=== PATIENT | female | born 1990 | race Caucasian/White ===

== ENCOUNTER → 2016-03-04 | Outpatient (CLI) | payer OTHER ==
[~2016-03-04] MED LIST: FERR1TAB13 PO; INSHNI SQ; PREN1TAB29 PO
[2016-03-06 07:11] LABS: AFP MULTIPLE OF MEDIAN 1.08; AFPTS INSULIN DEP DIABETIC? YES; AFPTS MATERNAL WT 140 LBS; ALPHA-FETOPROTEIN RACE CAUCASIAN=W; EDD DETERMINED BY ULTRASOUND; HISTORY OF NTD NO; REPEAT SAMPLE? NO
== END | disposition home or self-care (01) ==
LOC: C.LAB1850 11:39
PROVIDERS: ATTEND Obstetrics & Gynecology
DX: Z34.82 Encounter for supervision of other normal pregnancy, second trimester (principal)

== ENCOUNTER → 2016-05-27 | Outpatient (CLI) | payer OTHER ==
[2016-05-27 13:11] LABS: HEMATOCRIT 28.2 % (37-47)
== END | disposition home or self-care (01) ==
LOC: C.LAB1850 11:46
PROVIDERS: ATTEND Obstetrics & Gynecology
DX: Z34.82 Encounter for supervision of other normal pregnancy, second trimester (principal)

== ENCOUNTER → 2016-05-27 | Outpatient (CLI) | payer OTHER ==
[2016-05-27 15:13] LABS: URINE APPEARANCE CLEAR (CLEAR); URINE BILIRUBIN NEG (NEG); URINE COLOR YELLOW; URINE NITRITE NEG (NEG); URINE PH 8.5 (4.5-7.5); URINE SPECIFIC GRAVITY 1.005 (1.000-1.030); UROBILINOGEN NEG (NEG)
[2016-05-27 15:18] LABS: MANUAL MICROSCOPIC REQUIRED? NO; REVIEW REQ? NO
== END | disposition home or self-care (01) ==
LOC: C.LABSPEC 13:54
PROVIDERS: ATTEND Obstetrics & Gynecology
DX: Z34.82 Encounter for supervision of other normal pregnancy, second trimester (principal)

== ENCOUNTER → 2016-07-21 | Outpatient (CLI) | payer OTHER ==
[2016-07-21 15:14] LABS: HEMATOCRIT 25.7 % (37-47); MEAN CELL VOLUME 73.2 fL (80-100); MEAN CORPUSCULAR HEMOGLOBIN 21.9 pg (25-34); MEAN PLATELET VOLUME 9.8 fL (7.4-10.4); PLATELET COUNT 219 K/uL (130-400); RED BLOOD COUNT 3.51 M/uL (4.2-5.4); WHITE BLOOD COUNT 9.14 K/uL (4.8-10.8)
[2016-07-21 15:20] LABS: ALT/SGPT 12 U/L (12-78); AST/SGOT 16 U/L (15-37); BLOOD UREA NITROGEN 5 mg/dl (7-18); BUN/CREATININE RATIO 9.5 (10-20); CALCIUM 8.2 mg/dl (8.5-10.1); CARBON DIOXIDE 24 mmol/L (21-32); CHLORIDE 111 mmol/L (98-107); CREATININE 0.53 mg/dl (0.60-1.20); GLUCOSE 95 mg/dl (70-99); POTASSIUM 3.3 mmol/L (3.5-5.1); SODIUM 144 mmol/L (136-145); URIC ACID 4.3 mg/dl (2.6-7.2)
[2016-07-21 15:28] LABS: ALB/GLOB RATIO 0.7 (0.9-2); ALKALINE PHOSPHATASE 123 U/L (45-117)
[2016-07-21 16:14] LABS: BASO % 0.1 %; BASO ABS # 0.01 K/uL (0-0.2); COMPLETE YES; EOS % 0.4 %; IG% 1.1 %; LYMPH % 19.5 %; LYMPH ABS # 1.78 K/uL (1.2-3.4); MICROCYTOSIS PRESENT; MONO % 3.9 %; POLYCHROMASIA 1+
== END | disposition home or self-care (01) ==
LOC: C.LAB1850 14:28
PROVIDERS: ATTEND Obstetrics & Gynecology
DX: O13.9 Gestational [pregnancy-induced] hypertension without significant proteinuria, unspecified trimester (principal)

== ENCOUNTER → 2016-07-23 | Outpatient (CLI) | payer OTHER ==
[2016-07-23 11:37] LABS: URINE TOTAL PROTEIN 28.6 mg/dl (0-11.9); URINE TOTAL PROTEIN CALC 357.5 mg/24 hr (0-149.1)
[2016-07-28 02:20] LABS: CHENODEOXYCHOLIC ACID 3.1 umol/L (< OR = 3.1); CHOLIC ACID 2.3 umol/L (< OR = 1.8); DEOXYCHOLIC ACID 2.5 umol/L (< OR = 2.4); HEMOGLOBIN A2 2.1 % (1.8-3.5); HGB 7.7 g/dL (11.7-15.5); MCH 22.5 pg (27.0-33.0); RBC 3.42 Mill/uL (3.80-5.10); RDW 16.5 % (11.0-15.0); TOTAL BILE ACIDS 7.9 umol/L (< OR = 6.8)
== END | disposition home or self-care (01) ==
LOC: C.LAB1850 10:27
PROVIDERS: ATTEND Obstetrics & Gynecology
DX: L29.9 Pruritus, unspecified (principal); O13.9 Gestational [pregnancy-induced] hypertension without significant proteinuria, unspecified trimester; O99.019 Anemia complicating pregnancy, unspecified trimester; O99.719 Diseases of the skin and subcutaneous tissue complicating pregnancy, unspecified trimester; Z3A.00 Weeks of gestation of pregnancy not specified

== ENCOUNTER 2016-07-26 17:00 | Emergency (ER) | payer OTHER ==
[~2016-07-26] VITALS: Ht 162.6 cm; Wt 82.2 kg
[~2016-07-26 17:00] MED LIST changes: -FERR1TAB13 PO; -INSHNI SQ
[2016-07-26 17:01] VITALS: TEMP 36.7; Ht 162.6 cm; Wt 82.2 kg
[2016-07-26] MEDS ORDERED: INSHNI SQ (17:53)
[2016-07-26] MEDS ORDERED: FERR1TAB13 PO (17:53)
--- NOTE | 2016-07-26 18:50 | DIAGNOSTIC IMAGING REPORT ---
RIGHT LOWER EXTREMITY VENOUS DOPPLER HISTORY: right leg swelling Right COMPARISON STUDY: None. FINDINGS: There is normal compressibility, flow, and augmentation within the right lower extremity deep venous system. IMPRESSION: No DVT within the right lower extremity Electronically signed by: Markus Lopez M.D. 07/26/2016 6:48 PM Dictated Date/Time: 07/26/2016 6:48 PM
[2016-07-26 19:00] VITALS: BP 128/71; PULSE 68; O2SAT 99
--- NOTE | 2016-07-26 19:22 | EMERGENCY ROOM VISIT NOTE ---
History First contact with patient: 17:06 Chief Complaint: SWELLING TO EXTREMITY Stated Complaint: RT LEG SWELLING,37 WKS PREG History of Present Illness The patient is a 26 year old female who presents to the Emergency Room with complaints of right leg swelling. The patient states that she is currently almost 37 weeks . She has had swelling of both of her legs for the past 1.5 weeks, but states that the right leg is more swollen than the left day. The patient is seen by Ann Hooper [facility] CH[facility]. She was diagnosed with preeclampsia this week after having an elevated blood pressure and protein in her 24-hour urine. She is also currently taking insulin at bedtime for gestational diabetes. She states that she has maintained her blood sugars around 125 to 130, which is just slightly higher than they should be. She is being induced this week due to the preeclampsia. She states this is her third . She has no history of blood clots. She is not a smoker and denies any recent long trips. She denies any leg pain, numbness or weakness. She denies any abdominal pain or vaginal bleeding. Review of Systems A complete 10 point review of systems was reviewed with the patient with pertinent positives and negatives as per history of present illness. All else were negative. Social History Smoking Status: Former Smoker Current/Historical Medications Scheduled Ferrous Sulfate ( Ferrous Sulfate), 325 MG PO DAILY Insulin Human NPH (Humulin N), 8 UNITS SQ HS Vit W/ Ferrous Fumara (), 1 TABLET PO DAILY Allergies Coded Allergies: Sulfamethoxazole w/Trimethoprim (Verified Allergy, Unknown, UNKNOWN, ) Physical Exam Vital Signs Date Time Temp Pulse Resp B/P Pulse Ox O2 Delivery O2 Flow Rate FiO2 07/26/16 19:00 68 18 128/71 99 Room Air 07/26/16 17:01 36.7 82 18 133/77 100 Room Air Physical Exam VITALS: Vitals are noted on the nurse's note and reviewed by myself. Vital signs stable. GENERAL: This is a 26-year-old female, in no acute distress, nondiaphoretic, well-developed well-nourished. HEART: Regular rate and rhythm without murmurs gallops or rubs. LUNGS: Clear to auscultation bilaterally without wheezes, rales or rhonchi. No retractions or accessory muscle use. ABDOMEN: Gravid uterus. EXTREMITIES: There is 1+ pitting edema to the right lower extremity. No erythema or tenderness with palpation. There is mild edema of the left thorax and 8. NEURO: Patient was alert and oriented to person place and time. Medical Decision & Procedures ER Provider Diagnostic Interpretation: RIGHT LOWER EXTREMITY VENOUS DOPPLER HISTORY: right leg swelling Right COMPARISON STUDY: None. FINDINGS: There is normal compressibility, flow, and augmentation within the right lower extremity deep venous system. IMPRESSION: No DVT within the right lower extremity Medical Decision The patient was evaluated as above. Ultrasound of the leg was performed and read by radiology with no DVT noted. I did not feel that any further workup was necessary at this time. Blood pressure was minimally elevated initially, but repeat blood pressure was within normal limits. Case was discussed with Dr. Urbano of [facility]. She did confirm that the patient will be induced this week, but also did not feel that any further workup needed to be done in the emergency department today given the negative ultrasound. Patient was informed of these findings and was reassured. She will follow-up with OB/ [facility] as scheduled. She verbalized understanding of my assessment and treatment plan and was discharged home in good condition. Impression Primary Impression: Right leg swelling Departure Information Dispostion Home / Self-Care Condition GOOD Referrals Skyler Leon. PH.D. (PCP) Sagrario Urbano M.D. Patient Instructions My [facility] Additional Instructions Follow-up with Dr. Urbano as scheduled. Elevate the leg to reduce swelling. Return to the emergency department with worsening or new/concerning symptoms.
== END 2016-07-26 19:49 | disposition home or self-care (01) ==
LOC: C.EDB 17:01
DX: O26.893 Other specified pregnancy related conditions, third trimester (principal); M79.89 Other specified soft tissue disorders; O24.414 Gestational diabetes mellitus in pregnancy, insulin controlled; O14.93 Unspecified pre-eclampsia, third trimester; Z3A.37 37 weeks gestation of pregnancy; Z87.891 Personal history of nicotine dependence

== ENCOUNTER → 2016-07-28 | Outpatient (CLI) | payer OTHER ==
[~2016-07-28] MED LIST changes: +FERR1TAB13 PO; +INSHNI SQ
[2016-07-28 11:27] LABS: HEMATOCRIT 26.3 % (37-47); MEAN CELL VOLUME 73.7 fL (80-100); MEAN CORPUSCULAR HEMOGLOBIN 21.6 pg (25-34); MEAN PLATELET VOLUME 9.6 fL (7.4-10.4); PLATELET COUNT 178 K/uL (130-400); RED BLOOD COUNT 3.57 M/uL (4.2-5.4)
[2016-07-28 11:28] LABS: MEAN CORPUSCULAR HGB CONC 29.3 g/dl (32-36)
[2016-07-28 12:09] LABS: ALB/GLOB RATIO 0.7 (0.9-2); ALKALINE PHOSPHATASE 130 U/L (45-117); ALT/SGPT 11 U/L (12-78); AST/SGOT 14 U/L (15-37); BLOOD UREA NITROGEN 4 mg/dl (7-18); BUN/CREATININE RATIO 7.5 (10-20); CALCIUM 8.2 mg/dl (8.5-10.1); CARBON DIOXIDE 26 mmol/L (21-32); CHLORIDE 113 mmol/L (98-107); CREATININE 0.54 mg/dl (0.60-1.20); GLUCOSE 78 mg/dl (70-99); POTASSIUM 3.4 mmol/L (3.5-5.1); SODIUM 144 mmol/L (136-145)
== END | disposition home or self-care (01) ==
LOC: C.LAB1850 10:58
PROVIDERS: ATTEND Obstetrics & Gynecology
DX: O14.90 Unspecified pre-eclampsia, unspecified trimester (principal)

== ENCOUNTER 2016-07-29 19:18 | Outpatient (CLI) | payer OTHER ==
[~2016-07-29] VITALS: Ht 162.6 cm; Wt 81.0 kg
[2016-07-29 19:56] VITALS: Ht 162.6 cm; Wt 81.0 kg
== END 2016-07-29 20:10 | disposition home or self-care (01) ==
LOC: C.LD 19:18 → C.OPB 19:18
PROVIDERS: ATTEND Obstetrics & Gynecology
DX: O16.3 Unspecified maternal hypertension, third trimester (principal); Z3A.37 37 weeks gestation of pregnancy

== ENCOUNTER 2016-07-30 07:24 | Inpatient (IN) | payer OTHER ==
[~2016-07-30] VITALS: Ht 162.6 cm; Wt 81.8 kg
[2016-07-30] MEDS ORDERED: LACTATED RINGER'S 1000ML 500 ML IV PRN ×2 (07:45→17:30)
[2016-07-30] MEDS ORDERED: OXYTOCIN 30 UNITS/500ML NSS IV PRN ×2 (07:45→20:30)
[2016-07-30] MEDS ORDERED: SODIUM CHLORIDE 0.9% 1000ML 1,000 ML IV SCH (07:53)
[2016-07-30] MEDS ORDERED: DEXTROSE 5% 1000ML 1,000 ML IV SCH (07:53)
[2016-07-30] MEDS ORDERED: DEXTROSE 50% 50 ML SYR IV PRN (08:00)
[2016-07-30] MEDS ORDERED: PENICILLIN G POTASSIUM IV 6 MU in DEXTROSE 5% 250ML 250 ML IV ONE (08:00)
[2016-07-30] MEDS: LACTATED RINGER'S 1000ML 1,000 ML IV SCH ×2 (08:03→16:21)
[2016-07-30] MEDS ORDERED: GLUCAGON FOR INJ 1 MG VIAL SQ PRN (08:30)
[2016-07-30] MEDS ORDERED: GLUCOSE 10 TABS/TUBE PO PRN (08:30)
[2016-07-30] MEDS ORDERED: GLUCOSE 40% GEL 15 GM TUBE PO PRN (08:30)
[2016-07-30 08:47] LABS: HEMATOCRIT 24.1 % (37-47); MEAN CELL VOLUME 74.4 fL (80-100); MEAN CORPUSCULAR HEMOGLOBIN 22.5 pg (25-34); MEAN CORPUSCULAR HGB CONC 30.3 g/dl (32-36); MEAN PLATELET VOLUME 10.5 fL (7.4-10.4); PLATELET COUNT 149 K/uL (130-400); RED BLOOD COUNT 3.24 M/uL (4.2-5.4)
[2016-07-30] MEDS: INSULIN REGULAR 250 UNITS in SODIUM CHLORIDE 0.9% 250ML 250 ML IV SCH ×3 (09:27→12:50)
[2016-07-30 11:23] VITALS: Ht 162.6 cm; Wt 81.8 kg
[2016-07-30] MEDS: PENICILLIN G POTASSIUM IV 3 MU in DEXTROSE 5% 100ML 100 ML IV PRN ×2 (12:37→16:21)
[2016-07-30] MEDS ORDERED: BUPIVACAINE 0.25% 30 ML VIAL ONE (16:52)
[2016-07-30] MEDS ORDERED: EpHEDrine SULFATE INJ 50 MG/ML AMP ONE (16:53)
[2016-07-30] MEDS ORDERED: FENTANYL 2MCG/ML ROPIV 1.25MG/ML 100ML BAG EPI ONE (16:53)
[2016-07-30] MEDS ORDERED: FENTANYL CITRATE INJ 50 MCG/1 ML 2 ML VIAL ONE (16:54)
[2016-07-30] MEDS ORDERED: NALBUPHINE HCL INJ 10 MG/ML AMP IV PRN (17:30)
[2016-07-30] MEDS ORDERED: EpHEDrine SULFATE INJ 50 MG/ML AMP IV PRN (17:30)
[2016-07-30] MEDS ORDERED: NALOXONE HCL INJ 0.4 MG/1 ML VIAL/CARP IV PRN (17:30)
[2016-07-30] MEDS ORDERED: ONDANSETRON INJ 2 MG/ML 2 ML VIAL IV PRN (17:30)
[2016-07-30] MEDS ORDERED: DiphenhydrAMINE HCL 50 MG/ML VIAL IV PRN (17:30)
[2016-07-30] MEDS ORDERED: FENTANYL 2MCG/ML ROPIV 1.25MG/ML 100ML BAG EPI PRN (17:30)
[2016-07-30] MEDS ORDERED: LANOLIN OINT EXT PRN ×2 (20:30)
[2016-07-30] MEDS ORDERED: BENZOCAINE 20% AER SPR 82.5 GM CAN EXT PRN (20:30)
[2016-07-30] MEDS ORDERED: ACETAMINOPHEN/CODEINE 300/30MG TAB PO PRN (20:30)
[2016-07-30] MEDS ORDERED: SUPERCREAM 0.870 % 15GM JAR EXT PRN (20:30)
[2016-07-30 21:10] LABS: HEMATOCRIT 20.5 % (37-47)
[2016-07-30] MEDS ORDERED: ACETAMINOPHEN 325 MG TAB PO STA (21:43)
--- NOTE | 2016-07-30 21:56 | DELIVERY SUMMARY ---
DATE OF OPERATION: 07/30/2016 The patient is a 26-year-old 3 para 2-0-0-2 white female EDC of 08/19/2016 who presented for induction of labor for preeclampsia and cholestasis of . She had a cervical Cho placed on the evening of July 29 and represented to labor and delivery on the morning of July 30. Pitocin augmentation of labor was begun, membranes were ruptured for clear fluid, she progressed to full dilation and pushed effectively over one contraction for delivery of a viable male infant. Mouth and nasopharynx were suctioned on the perineum. The infant was then placed on the mother's abdomen for further attention, stimulation and drawing. The cord was then clamped and cut. After cord blood was obtained, uterine massage was done to help to express the placenta. The placenta then eventually delivered spontaneously after approximately 10 minutes. Upon examination of the placenta, there appeared to be 1 cotyledon that appeared to be missing. The fundus was firm; however, there was still a steady trickle of bleeding. Curettage was performed with a Banjo curette and placental tissue was then removed. There was good uterine cry throughout after the curettage and bleeding had slowed. She was given dilute Pitocin during this procedure. A first degree perineal laceration was repaired with 3-0 chromic in usual fashion. The patient tolerated the procedure well, although she did have some hypotensive episode with dizziness and nausea prior to doing the curettage. Estimated blood loss was 400 mL. I attest to the content of the Intraoperative Record and any orders documented therein. Any exceptions are noted below. VAISHALID
[2016-07-30 22:47] VITALS: BP 125/72; PULSE 82; TEMP 36.8; O2SAT 100
[2016-07-30 22:50] VITALS: BP 125/72; PULSE 82; TEMP 36.8; O2SAT 100
[2016-07-30 23:05] VITALS: BP 123/71; PULSE 76; TEMP 37; O2SAT 98
[2016-07-30 23:20] VITALS: BP 124/68; PULSE 80; TEMP 36.8; O2SAT 98
[2016-07-30 23:50] VITALS: BP 122/62; PULSE 66; TEMP 37; O2SAT 98
[2016-07-31] VITALS (12 sets, daily range): BP systolic 111–145; BP diastolic 68–96; PULSE 66–80; TEMP 36.4–37.1; O2SAT 97–99
[2016-07-31] MEDS: IBUPROFEN 600 MG TAB PO PRN ×2 (01:44→10:45)
[2016-07-31 05:04] LABS: HEMATOCRIT 20.5 % (37-47)
[2016-07-31] MEDS: CEFAZOLIN IV 1,000 MG in DEXTROSE 5% 50ML 50 ML IV SCH ×3 (06:38→22:29)
--- NOTE | 2016-07-31 06:57 | Progress Note ---
Subjective Jul 31, 2016. Subjective conversation w/ patient, physical exam, lab review Ambulation: limited ambulation Voiding: no voiding problems Diet Tolerance: Regular Diet Lochia: Small Feeding Type: Breast Feeding Pain: controlled Comment: Patient is sitting up in bed and noting she is feeling much better. No longer has ringing in her ears or dizziness with sitting. Has been able to get up to the bathroom. no n/v, no cp or sob. Objective Vital Signs Date Time Temp Pulse Resp B/P (MAP) Pulse Ox O2 Delivery O2 Flow Rate FiO2 07/31/16 06:30 36.9 75 16 127/81 99 07/31/16 06:00 37.1 70 18 125/82 98 07/31/16 05:45 37.1 80 18 111/69 98 07/31/16 05:26 36.9 80 18 122/78 98 07/31/16 03:50 37.0 77 16 118/68 (85) 98 Room Air 07/31/16 00:15 Room Air 07/31/16 00:15 37.1 75 16 125/74 97 07/31/16 00:15 37.1 75 16 125/74 (91) 97 Room Air 07/31/16 00:15 37.1 75 16 125/74 97 07/30/16 23:50 37.0 66 18 122/62 98 07/30/16 23:20 36.8 80 18 124/68 98 07/30/16 23:05 37.0 76 18 123/71 98 07/30/16 22:50 36.8 82 18 125/72 100 07/30/16 22:47 36.8 82 18 125/72 100 Physical Exam General Appearance: WELL-APPEARING, WD/WN, NO APPARENT DISTRESS Abdomen: non tender, soft Fundus: Firm, Non-Tender, Relation to Umbilicus (at u) Extremities: non-tender, normal inspection, no pedal edema Laboratory Results Last 24 Hours Test 07/30/16 08:04 07/30/16 08:46 07/30/16 09:48 07/30/16 10:45 White Blood Count 7.20 K/uL Red Blood Count 3.24 M/uL Hemoglobin 7.3 g/dL Hematocrit 24.1 % Mean Corpuscular Volume 74.4 fL Mean Corpuscular Hemoglobin 22.5 pg Mean Corpuscular Hemoglobin Concent 30.3 g/dl RDW Standard Deviation 44.3 fL RDW Coefficient of Variation 16.3 % Platelet Count 149 K/uL Mean Platelet Volume 10.5 fL Nucleated RBC Absolute Count (auto) 0.04 K/uL Nucleated Red Blood Cells % 0.6 % Total Bilirubin 0.9 mg/dl Direct Bilirubin 0.2 mg/dl Aspartate Amino Transf (AST/SGOT) 18 U/L Alanine Aminotransferase (ALT/SGPT) 14 U/L Alkaline Phosphatase 124 U/L Total Protein 5.6 gm/dl Albumin 2.4 gm/dl Bedside Glucose 102 mg/dl 70 mg/dl 76 mg/dl Test 07/30/16 11:47 07/30/16 12:45 07/30/16 13:44 07/30/16 14:48 Bedside Glucose 108 mg/dl 99 mg/dl 86 mg/dl 88 mg/dl Test 07/30/16 15:47 07/30/16 16:46 07/30/16 17:46 07/30/16 18:49 Bedside Glucose 88 mg/dl 94 mg/dl 94 mg/dl 82 mg/dl Test 07/30/16 20:53 07/31/16 04:10 Hemoglobin 6.2 g/dL 6.3 g/dL Hematocrit 20.5 % 20.5 % Assessment and Plan Problem List Medical Problems: (1) Right leg swelling Status: Acute Post- Day#: 1 Continue Routine Care: After her first unit her hgb only came up 0.1, so second unit is transfusing. Doing much better. hgb due at 11. Will likely just monitor and see how she does after the two units since she is feeling so much better. Continue routine care.
[2016-07-31] MEDS: PRENATAL VITAMIN TAB PO SCH (08:17)
[2016-07-31] MEDS: FERROUS SULFATE 325 MG TAB PO SCH ×2 (08:17→18:23)
[2016-07-31] MEDS: DOCUSATE SODIUM 100 MG CAP PO SCH ×2 (08:17→20:26)
--- NOTE | 2016-07-31 08:49 | Anesthesia Procedure Note ---
Anesthesia Epidural Removal Nt Date & Time Jul 31, 2016 at 08:49 Vital Signs Pain Intensity: 1.0 Vital Signs Past 12 Hours Date Time Temp Pulse Resp B/P (MAP) Pulse Ox O2 Delivery O2 Flow Rate FiO2 07/31/16 07:00 36.9 72 18 132/81 98 07/31/16 06:30 36.9 75 16 127/81 99 07/31/16 06:00 37.1 70 18 125/82 98 07/31/16 05:45 37.1 80 18 111/69 98 07/31/16 05:26 36.9 80 18 122/78 98 07/31/16 03:50 37.0 77 16 118/68 (85) 98 Room Air 07/31/16 00:15 Room Air 07/31/16 00:15 37.1 75 16 125/74 97 07/31/16 00:15 37.1 75 16 125/74 (91) 97 Room Air 07/31/16 00:15 37.1 75 16 125/74 97 07/30/16 23:50 37.0 66 18 122/62 98 07/30/16 23:20 36.8 80 18 124/68 98 07/30/16 23:05 37.0 76 18 123/71 98 07/30/16 22:50 36.8 82 18 125/72 100 07/30/16 22:47 36.8 82 18 125/72 100 Notes Mental Status: alert / awake / arousable, participated in evaluation Nausea / Vomiting: adequately controlled Pain: adequately controlled Airway Patency, RR, SpO2: stable & adequate BP & HR: stable & adequate Hydration State: stable & adequate Neuraxial Anesthesia: was administered, sensory block is resolved Anesthetic Complications: no major complications apparent, pt satisfied with anesthetic care Epidural: removed without complications, with tip intact
[2016-07-31] MEDS: ACETAMINOPHEN/CODEINE 300/30MG TAB PO PRN (11:18)
[2016-07-31] MEDS ORDERED: BISACODYL 5 MG TABEC PO SCH (20:00)
[2016-08-01 00:05] VITALS: BP 126/78; PULSE 76; TEMP 36.5
[2016-08-01] MEDS: ACETAMINOPHEN 325 MG TAB PO PRN ×2 (00:15→17:14)
[2016-08-01 07:20] VITALS: BP 136/82; PULSE 61; TEMP 36.4
--- NOTE | 2016-08-01 07:38 | Progress Note ---
Subjective Aug 01, 2016. Subjective conversation w/ patient, physical exam Ambulation: ambulating normally Voiding: no voiding problems Passing Gas: Yes Diet Tolerance: Regular Diet Lochia: Small Feeding Type: Breast Feeding Review of Systems Constitutional: No fever, No chills, No sweats, No weight loss, No weakness, No fatigue, No problem reported Female : No see HPI, No dysuria, No urinary frequency, No hematuria, No incontinence, No abnormal vaginal bleeding, No vaginal discharge, No problem reported Objective Vital Signs Date Time Temp Pulse Resp B/P (MAP) Pulse Ox O2 Delivery O2 Flow Rate FiO2 08/01/16 00:05 36.5 76 18 126/78 (94) Room Air 08/01/16 00:05 Room Air 07/31/16 21:15 36.7 72 20 136/88 (104) Room Air 07/31/16 16:10 Room Air 07/31/16 16:10 36.5 72 16 122/78 (93) Room Air 07/31/16 11:55 36.4 67 20 145/96 (112) Room Air 07/31/16 08:25 36.6 66 20 128/83 99 07/31/16 08:00 37.0 73 20 131/82 (98) 98 Room Air 07/31/16 08:00 37.0 73 20 131/82 98 07/31/16 08:00 98 Room Air Physical Exam General Appearance: WELL-APPEARING, NO APPARENT DISTRESS Abdomen: non tender, soft Fundus: Firm, Non-Tender, Relation to Umbilicus (2 below U) Extremities: no calf tenderness Laboratory Results Last 24 Hours Test 07/31/16 11:27 Hemoglobin 7.1 g/dL Hematocrit 22.0 % Assessment and Plan Problem List Medical Problems: (1) Right leg swelling Status: Acute Post- Day#: 2 Continue Routine Care: stable course after blood transfusion of 2 units of PRBC's continue ferrous sulfate twice a day discharge to home follow up in 6 weeks.
[2016-08-01] MEDS: PRENATAL VITAMIN TAB PO SCH (07:50)
[2016-08-01] MEDS: DOCUSATE SODIUM 100 MG CAP PO SCH ×2 (07:50→18:34)
[2016-08-01] MEDS: FERROUS SULFATE 325 MG TAB PO SCH ×2 (07:50→17:13)
--- NOTE | 2016-08-01 08:14 | Discharge Instructions ---
Discharge Instructions Date of Service Aug 01, 2016. Admission Reason for Admission: Induction Discharge Discharge Diagnosis / Problem: recovery from normal delivery Discharge Goals Goal(s): Routine recovery after delivery Medications Continue Dispensed Medications: supercream, dermaplast, tucks, lansinoh Activity Recommendations Activity Limitations: per Instructions/Follow-up section . Instructions / Follow-Up Instructions / Follow-Up ACTIVITY RECOMMENDATIONS: * Gradual return to full activity over the next 2-3 weeks. * No lifting - nothing heavier than baby over the next 2-3 weeks. * Do not engage in vigorous exercise, sexual activity or sports until cleared by your physician. * Do not drive or operate any motorized equipment until cleared by your physician. * You may shower/bathe daily. MEDICATIONS: For discomfort or pain, you may use Acetaminophen (Tylenol), Ibuprofen (Advil), or Naproxen (Aleve) following the package directions. For constipation you may use Colace following the package directions. BREAST CARE: If you are not breast feeding: * Wear a supportive bra 24 hours a day for one to two weeks. * Avoid stimulating your breasts and nipples as much as possible during the first few weeks after delivery. * When taking a shower, have the warm water hit your back, not breasts. * When your breasts feel full, apply ice packs. Usually three to four times a day helps ease the discomfort. * Take a mild pain medication (Tylenol / Motrin) when you are uncomfortable. If breast feeding: * Use breast milk to lubricate nipples. Lansinoh cream may be used for sore nipples. You do not need to remove cream prior to breast feeding. If using a different brand of cream, check the label for directions regarding removal of cream prior to nursing. * Wear a supportive bra. * If having problems with breasts or breast feeding, call a aws consultant or your health care provider. EPISIOTOMY CARE: After delivery, if you have an episiotomy (stitches), the following steps will ease discomfort and aid healing. * For the first 24 hours after delivery, place ice packs next to your episiotomy to help reduce swelling. * After the first 24 hour-period, sitz baths, either portable or in the tub, are suggested. A shower with a shower arm sprayed over the episiotomy may be comforting. * Penny care should be done after each voiding and bowel movement. Squirt warm water from a plastic bottle over the perineum (region of the body between the anus and urinary opening) and pat dry. * Use Dermoplast to ease discomfort. Shake container. [place] directly over the episiotomy. Place a Tucks on a clean sanitary pad next to your episiotomy. SPECIAL CARE INSTRUCTIONS: When you are discharged from the hospital, it is important for you to follow the instructions listed below: * During the first week at home, you should be able to care for yourself and your baby. In addition, the usual light household activities are encouraged. * Limit your activities to the way you feel. Do not try to clean the house or move furniture. Be sensible. * If you actively engage in sports and have done so up until the time of your delivery, you may resume these activities as soon as you feel able. This may take up to one month or even longer. Use good judgment. * Continue to take your vitamins for at least six weeks after the of your baby. * Your diet need not be limited unless you were on a special diet before your delivery. Breast-feeding mothers need around 2500 calories per day and at least 64-80 ounces of fluid per day (8 to 10 glasses). * You should eat foods from the four major food groups. Crash diets or fad diets are to be avoided. Eating lean meats, fresh fruits and vegetables, low-fat dairy products, high fiber foods and a regular exercise program, will help you get back to your pre- weight without putting your health at risk. * Constipation is sometimes a problem after delivery. Take a mild laxative as needed. If breast feeding, Milk of Magnesia is acceptable to use. You may use a suppository or Fleets enema if no episiotomy. * A daily shower or tub bath is suggested. Be sure to thoroughly and gently dry the perineum. * A bloody vaginal discharge will usually continue until around four weeks post . A small amount of bleeding may continue for as long as six weeks. Vaginal discharge changes from the bright red bleeding after delivery to pink then brownish and finally yellowish-pink before becoming white and disappearing. * Bleeding may increase with activity. Your first period may come in 4-8 weeks. If you are breast feeding, your period may be delayed even longer. * Delia (sex) can begin whenever both you and your partner feel comfortable and do not have any form of genital infection. It is recommended that you wait at least six weeks for internal and external healing to occur. If you have questions, please talk to your health care practitioner. A condom should be used to prevent infection and . * Foreplay, gentle intercourse and lubrication is very important the first several times to prevent pain. A water-based lubricant such as K-Y jelly or Astroglide may be used. * If you have RH negative blood and your baby is RH positive, you will receive RHOGAM by injection prior to discharge. The nurse will give you a card to keep with you that has the date and place that you received RHOGAM after delivery. * During your care, you had a Rubella screen done to check for the presence of rubella antibodies in your blood. If your test was negative, you will receive a Rubella vaccine prior to discharge. This vaccine may cause a fever, soreness at the injection site and flu-like symptoms. If these symptoms persist, notify your health care practitioner. is not advised for one month after a Rubella vaccine. * Verbalizes understanding of car seat law as reviewed with patient nursing. * Car Seat hand-out given and reviewed with patient by nursing. * Shaken baby information reviewed with patient by nursing. Call you doctor if: * Heavy bleeding (saturating several pads an hour) or passing clots the size of your fist. * A fever >101 degrees F (38.3 degrees C) on two occasions four hours apart and /or chills. * Unusual pain in the pelvic or vaginal areas. * "Baby Blues" lasting longer than two weeks. If you have any questions or concerns, call your health care practitioner at . FOLLOW UP VISIT: * Please call the office at to schedule a 6 week examination. It is important you keep this appointment. It is important for you to make arrangements for either yearly or twice yearly check-ups thereafter. Current Hospital Diet Patient's current hospital diet: Regular OB Diet Discharge Diet Recommended Diet: Regular OB Diet Pending Studies Studies pending at discharge: no Medical Emergencies . Who to Call and When: Medical Emergencies: If at any time you feel your situation is an emergency, please call 911 immediately. . 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 . "Provider Documentation" section prepared by Constance Nguyen. . VTE Core Measure Inpt VTE Proph given/why not?: Treatment not indicated
[2016-08-01 15:41] VITALS: BP 133/80; PULSE 92; TEMP 37.3
[2016-08-01] MEDS: IBUPROFEN 600 MG TAB PO PRN (18:33)
[2016-08-01] MEDS: ACETAMINOPHEN/CODEINE 300/30MG TAB PO PRN (20:41)
[2016-08-01 20:56] VITALS: BP 147/87; PULSE 71; TEMP 36.7
== END 2016-08-01 21:25 | disposition home or self-care (01) | DRG 774 ==
LOC: C.LD 07:24 → C.OBG 07-31 00:34
PROVIDERS: ADMIT Obstetrics & Gynecology; ATTEND Obstetrics & Gynecology
PROC: 10E0XZZ Delivery of Products of Conception, External Approach (ICD-10-PCS; principal; 2016-07-30)
PROC: 3E033VJ Introduction of Other Hormone into Peripheral Vein, Percutaneous Approach (ICD-10-PCS; principal; 2016-07-30)
PROC: 0HQ9XZZ Repair Perineum Skin, External Approach (ICD-10-PCS; principal; 2016-07-30)
DX: O14.93 Unspecified pre-eclampsia, third trimester (principal); O99.013 Anemia complicating pregnancy, third trimester; O24.414 Gestational diabetes mellitus in pregnancy, insulin controlled; O99.824 Streptococcus B carrier state complicating childbirth; O42.02 Full-term premature rupture of membranes, onset of labor within 24 hours of rupture; O70.0 First degree perineal laceration during delivery; Z37.0 Single live birth; Z3A.37 37 weeks gestation of pregnancy; Z79.4 Long term (current) use of insulin

== ENCOUNTER → 2016-09-15 | Outpatient (CLI) | payer OTHER ==
[~2016-09-15] MED LIST changes: -INSHNI SQ
== END | disposition home or self-care (01) ==
LOC: C.PAPS 16:35
PROVIDERS: ATTEND Obstetrics & Gynecology
DX: Z12.4 Encounter for screening for malignant neoplasm of cervix (principal)

== ENCOUNTER → 2016-09-15 | Outpatient (CLI) | payer OTHER ==
[2016-09-15 15:45] LABS: HEMATOCRIT 33.6 % (37-47)
== END | disposition home or self-care (01) ==
LOC: C.LAB1850 14:47
PROVIDERS: ATTEND Obstetrics & Gynecology
DX: O99.019 Anemia complicating pregnancy, unspecified trimester (principal); O72.1 Other immediate postpartum hemorrhage; Z3A.00 Weeks of gestation of pregnancy not specified; Z37.0 Single live birth

== ENCOUNTER → 2016-09-29 | Outpatient (CLI) | payer OTHER ==
[2016-09-29 13:25] LABS: PREG INTERNAL NEGATIVE QC NEG CLEAR BACKGROUND; PREG INTERNAL POSITIVE QC POS CONTROL LINE
== END | disposition home or self-care (01) ==
LOC: C.LAB 12:52
PROVIDERS: ATTEND Physician Assistant
DX: Z30.9 Encounter for contraceptive management, unspecified (principal)